=== PATIENT | male | born 1955 | race Caucasian/White ===

== ENCOUNTER 2023-11-24 12:14 | Emergency (ER) | payer OTHER ==
[~2023-11-24] VITALS: Ht 172.7 cm; Wt 81.6 kg
[2023-11-24 12:35] VITALS: BP 129/77; PULSE 89; RESP 18; TEMP 96.9; O2SAT 96
[2023-11-24] MEDS: KETOROLAC 30 MG/ML VIAL IM ONE (13:28)
[2023-11-24] MEDS ORDERED: IBUP-2213 PO (14:03)
[2023-11-24 14:11] VITALS: BP 124/59; PULSE 60; RESP 14; TEMP 96.9; O2SAT 95
== END 2023-11-24 14:11 | disposition home or self-care (01) ==
LOC: MED 12:14
DX: M25.571 Pain in right ankle and joints of right foot (principal); M79.671 Pain in right foot; Z79.1 Long term (current) use of non-steroidal anti-inflammatories (NSAID); R22.41 Localized swelling, mass and lump, right lower limb; X50.9XXA Other and unspecified overexertion or strenuous movements or postures, initial encounter; Y93.66 Activity, soccer; Y92.89 Other specified places as the place of occurrence of the external cause; Y99.8 Other external cause status
CPT/HCPCS: 73610; 96372; 99283; J1885